=== PATIENT | male | born 1995 | race Caucasian/White ===

== ENCOUNTER → 2023-02-27 15:25 | Outpatient (CLI) | payer BC, SELFPAY ==
--- NOTE | ~2023-02-27 | XR_ITS ---
Left Knee Technique: AP, lateral, and sunrise views were obtained. Clinical History: Pain Findings: No fracture or dislocation is seen. Osseous alignment is anatomic. Joint spaces are preserv ed without degenerative or erosive change. Soft tissues are unremarkable. No joint effusion is seen. Impression: Unremarkable left knee radiographs. Reviewed, dictated and finalized at location . [facility] [employer] Impression: Unremarkable left knee radiographs.
== END ==
PROVIDERS: PCP Physician Assistant Medical; Visit Provider Physician Assistant Medical
DX: M25.562 Pain in left knee (principal)
CPT/HCPCS: 73562

== ENCOUNTER 2024-08-27 11:05 | Outpatient (CLI) | payer OTHER, SELFPAY ==
--- NOTE | ~2024-08-27 | XR_ITS ---
2 VIEWS THORACOLUMBAR SPINE Ordering provider: Dank Cuevas NP History: . M51.35 - Other intervertebral disc degeneration, thoracol... . Comparison: None. FINDINGS: VERTEBRAL BODIES: Normal height and alignment. No visible fracture or subluxation. DISK SPACES: Normal. SOFT TISSUES: Normal. IMPRESSION: No acute osseous abnormality of the thoracolumbar spine. If still clinically suspicious MRI is better for evaluation. Reviewed, dictated and finalized at location A. IMPRESSION: No acute osseous abnormality of the thoracolumbar spine. If still clinically salazar spicious MRI is better for evaluation.
--- NOTE | ~2024-08-27 | XR_ITS ---
[id number] Ordering provider: Dank Cuevas NP History: . M54.2 - Cervicalgia . Comparison: None. FINDINGS: VERTEBRAL BODIES: Normal height and alignment. No visible fracture or subluxation. The dens is intact . Minimal degenerative changes of the spine. DISK SPACES: Narrowing of the disc C5-C6 and C6-C7. PARASPINOUS SOFT TISSUES: No prevertebral soft tissue swelling. IMPRESSION: No acute osseous abnormality cervical spine. Degenerative disc disease at the level of C5-C6 and C6-C7. Reviewed, dictated and finalized at location A.
== END 2024-08-27 11:06 | disposition home or self-care (01) ==
LOC: MICIMG 11:05
PROVIDERS: PCP Family Medicine
DX: M51.35 Other intervertebral disc degeneration, thoracolumbar region (principal); M50.323 Other cervical disc degeneration at C6-C7 level
CPT/HCPCS: 72040; 72080

== ENCOUNTER 2024-10-10 08:06 | Outpatient (CLI) | payer OTHER, SELFPAY ==
--- NOTE | ~2024-10-10 | MR_ITS ---
MRI of the cervical spine Clinical History: Degenerative disc disease Technique: Axial T2-weighted and gradient images, and sagittal T1-weighted, T2-weighted, and STIR timo ges were acquired. Findings: There is no fracture or subluxation of the cervical spine. Vertebral bodies maintain normal height and alignment. No bone marrow signal abnormality seen. At C2-C3, there is no disc bulge or herniation. No spinal canal stenosis, cord compression or neural foraminal narrowing. At C3-C4, there is no disc bulge or herniation. No spinal canal stenosis, cord compression, or neural foraminal narrowing. At C4-C5, there is no disc bulge or herniation. No spinal canal stenosis, cord compression, or neural foraminal narrowing. At C5-C6, there is degenerative disc narrowing. There is mild disc osteophyte complex. There is mild canal stenosis without judith cord compression. There is bilateral neural foraminal narrowing, right w orse than left. At C6-C7, there is disc narrowing with mild disc osteophyte complex. There is mild canal stenosis wit hout judith cord compression. There is left neural foraminal narrowing. Right neural foramen preserved . No abnormal signal seen in the spinal cord. Paravertebral soft tissues are unremarkable. Impression: Moderate degenerative spondylosis at C5 and C6 and C6-C7, as detailed above. Reviewed, dictated and finalized at [facility]. Impression: Moderate degenerative spondylosis at C5 and C6 and C6-C7, as detailed above.
== END 2024-10-10 08:07 | disposition home or self-care (01) ==
LOC: MICIMG 08:07
PROVIDERS: PCP Family Medicine; Visit Provider Nurse Practitioner Family
DX: M47.812 Spondylosis without myelopathy or radiculopathy, cervical region (principal); M51.35 Other intervertebral disc degeneration, thoracolumbar region
CPT/HCPCS: 72141

== ENCOUNTER 2024-11-13 09:24 | Outpatient (CLI) | payer OTHER, SELFPAY ==
--- NOTE | ~2024-11-13 | MR_ITS ---
EXAMINATION: MR thoracic spine wo con DATE: 11/13/2024 09:53 INDICATION: Thoracic pain TECHNIQUE: Magnetic resonance imaging (MRI) of the thoracic spine was performed without intravenous c ontrast. Sagittal localizer T1-weighted FSE of the cervicothoracic spine was obtained. Thoracic spine sequences included sagittal T2-weighted FSE, sagittal T1-weighted SE, Sagittal T2-weighted FS FSE, a nd axial T2-weighted FSE. COMPARISON: None FINDINGS: Alignment is normal.Vertebral body heights are normal. Normal marrow signal. Mild disc height loss at T2-T3 through T9-T10 with disc desiccation at T5-T6 through T8-T9. Small right paracentral disc prot rusion at T7-T8 with only minimal central canal stenosis. There is multilevel thoracic facet osteoart hritis. This is severe contributes to mild neural from stenosis at T4-T5 and moderate severity also r esulting in mild central canal stenosis on the right at T8-T9. 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 Paravertebral soft tissues are unremarkable. There is normal spinal cord signal. The conus terminates at L1. IMPRESSION: 1. Mild thoracic spondylosis. No acute osseous abnormality. Reviewed, dictated and finalized at location A.
== END 2024-11-13 09:25 | disposition home or self-care (01) ==
PROVIDERS: PCP Family Medicine; Visit Provider Nurse Practitioner Family
DX: M43.04 Spondylolysis, thoracic region (principal)
CPT/HCPCS: 72146